=== PATIENT | female | born 1970 | race Caucasian/White ===

== ENCOUNTER 2019-07-30 08:42 | Observation (INO) ==
[2019-07-30] MEDS ORDERED: *HR* FentaNYL (PF) 100 MCG/2 ML VIAL IVP ONE (08:56)
[2019-07-30] MEDS ORDERED: 0.9 % Sodium Chloride 1,000 ML IVC ONE ×2 (08:56→11:56)
[2019-07-30 09:10] LABS: Basophils # 0.1 K/mcL (0.0-0.2); Basophils % 0.4 %; Eosinophils # 0.4 K/mcL (0.0-0.6); Eosinophils % 2.1 %; Hematocrit 39.7 % (35.3-44.9); Hemoglobin 12.5 g/dL (11.5-15.4); Immature Granulocytes % 0.5 % (0-4); Lymphocytes # 1.3 K/mcL (0.6-4.6); Lymphocytes % 6.8 %; Mean Corpuscular HGB Conc 31.5 g/dL (31.6-35.5); Mean Corpuscular Hemoglobin 25.9 pg (28.0-33.3); Mean Corpuscular Volume 82.4 fL (83.0-100.0); Mean Platelet Volume 9.3 fL (9.4-12.4); Monocytes # 1.4 K/mcL (0.0-1.3); Monocytes % 7.5 %; Neutrophils # 15.7 K/mcL (1.6-8.9); Platelet Count 367 K/mcL (140-400); Red Blood Count 4.82 M/mcL (3.82-4.97); Red Cell Distribution Width 14.8 % (11.5-14.5); Segmented Neutrophils % 82.7 %; White Blood Count 18.9 K/mcL (4.3-11.1)
[2019-07-30 09:21] LABS: Bilirubin,Urine Small (Negative); Blood,Urine Negative (Negative); Color,Urine Dark Yellow (Yellow); Glucose,Urine (UA) Normal (Normal); Ketones,Urine Trace mg/dL (Negative); Leukocyte Esterase,Urine Moderate (Negative); Nitrite,Urine Negative (Negative); Protein,Urine 100 mg/dL (Neg-Trace); Specific Gravity,Urine > 1.030 (1.010-1.025); Urobilinogen,Urine Normal (Normal)
[2019-07-30 09:21] LABS: INR 1.2; Prothrombin Time 13.6 Seconds (9.4-12.1)
[2019-07-30 09:24] LABS: Activated Partial Thrombo Time 32.8 Seconds (26.0-36.0)
[2019-07-30 09:24] LABS: Bacteria,Urine Many per hpf (None-Few); Squamous Epithelial Cell,Urine Many per lpf (None-Few); WBC,Urine 50-100 per hpf (0-3)
[2019-07-30 09:26] LABS: Clarity,Urine Slightly Cloudy (Clear)
[2019-07-30 09:32] LABS: Alanine Aminotransferase 44 Units/L (7-52); Albumin/Globulin Ratio 1.1 (1.1-2.2); Alkaline Phosphatase 131 Units/L (34-104); Aspartate Amino Transferase 31 Units/L (13-39); BUN/Creatinine Ratio 13 (6-26); Bilirubin,Direct 0.2 mg/dL (0.0-0.2); Bilirubin,Indirect 0.5 mg/dL (0.0-1.2); Bilirubin,Total 0.7 mg/dL (0.3-1.0); Blood Urea Nitrogen 12 mg/dL (6-20); Calcium 9.2 mg/dL (8.6-10.3); Carbon Dioxide 23 mEq/L (23-29); Chloride 100 mEq/L (98-107); Globulin 3.6 g/dL (2.4-3.5); Glucose 122 mg/dL (70-105); Lipase 6 Units/L (11-82); Osmolality,Calculated 275 (280-300); Potassium 3.7 mEq/L (3.5-5.1); Sodium 132 mEq/L (136-145); Total Protein 7.6 g/dL (6.4-8.9); eGFR For African Americans > 60 (> 60); eGFR For Non-African Americans > 60 (> 60)
[2019-07-30 09:54] LABS: RBC,Urine 0-3 per hpf (0-3)
[2019-07-30 09:55] LABS: Hyaline Casts,Urine Few per lpf (None-Few); Mucus,Urine Few (Few)
[2019-07-30] MEDS ORDERED: Ondansetron ODT 4 MG TAB.RAPDIS SL PRN ×2 (11:56→19:33)
[2019-07-30] MEDS ORDERED: D5% in Lactated Ringers 1,000 ML IVC SCH (12:00)
[2019-07-30] MEDS ORDERED: levoFLOXacin 750 MG/150 ML 750 MG/150 ML BAG IVPB SCH (12:15)
[2019-07-30] MEDS ORDERED: *HR* Propofol 200 MG/20 ML VIAL IVP ONE (15:21)
[2019-07-30] MEDS ORDERED: *HR* FentaNYL (PF) 100 MCG/2 ML VIAL ONE ×2 (15:21→16:23)
[2019-07-30] MEDS ORDERED: *HR* Midazolam HCl 2 MG/2 ML VIAL ONE (15:21)
[2019-07-30] MEDS ORDERED: Dexamethasone 4 MG/ML VIAL ONE ×2 (15:22→17:17)
[2019-07-30] MEDS ORDERED: Ondansetron 4 MG/2 ML VIAL ONE (15:22)
[2019-07-30] MEDS ORDERED: Lidocaine HCL 4 ML Topical Solution (Laryng-O-Jet Kit Sterile Pak) TP ONE (15:22)
[2019-07-30] MEDS ORDERED: *HR* Rocuronium Bromide 50 MG/5 ML VIAL ONE (15:22)
[2019-07-30] MEDS ORDERED: Lidocaine -MPF 2% 2 ML VIAL ONE (15:22)
[2019-07-30] MEDS ORDERED: Albuterol 2.5 MG/3 ML NEBULIZER IH ONE (15:38)
[2019-07-30] MEDS ORDERED: Isovue-300 50ML VIAL ONE (15:41)
[2019-07-30] MEDS ORDERED: Albuterol 2.5 MG/3 ML NEBULIZER ONE (15:43)
[2019-07-30] MEDS ORDERED: MetroNIDAZOLE 500 MG/100 ML 500 MG/100 ML BAG IVPB SCH (16:00)
[2019-07-30] MEDS ORDERED: *HR* Succinylcholine 200 MG/10 ML VIAL IVP ONE (16:40)
[2019-07-30] MEDS ORDERED: *HR* OxyCODONE Immed Rel 5 MG TABLET PO PRN (18:26)
[2019-07-30] MEDS: *HR* HYDROmorphone (PF) 1 MG/ML SYRINGE IVP PRN ×2 (18:38→18:44)
[2019-07-30] MEDS: *HR* Heparin 5,000 UNIT/ML VIAL SQ SCH (21:34)
[2019-07-30] MEDS: D5% in Lactated Ringers 1,000 ML IVC SCH (21:41)
[2019-07-31] MEDS: MetroNIDAZOLE 500 MG/100 ML 500 MG/100 ML BAG IVPB SCH ×2 (00:13→07:34)
[2019-07-31] MEDS: Acetaminophen 325 MG TABLET PO PRN ×2 (02:23→08:52)
[2019-07-31] MEDS: D5% in Lactated Ringers 1,000 ML IVC SCH (06:44)
[2019-07-31] MEDS: *HR* Heparin 5,000 UNIT/ML VIAL SQ SCH (06:45)
[2019-07-31 07:04] VITALS: BP 120/82
[2019-07-31] MEDS ORDERED: levoFLOXacin 750 MG/150 ML 750 MG/150 ML BAG IVPB SCH (09:00)
[2019-07-31] MEDS ORDERED: FLUoxetine 20 MG CAPSULE PO SCH (09:00)
== END 2019-07-31 11:30 | disposition home or self-care (01) ==
LOC: EMEROOARM 08:42 → 3ANU 08:42
PROVIDERS: ADMIT Surgery; ATTEND Surgery

== ENCOUNTER 2021-12-21 06:03 | Inpatient (IN) ==
[~2021-12-21 06:03] MED LIST: Acetaminophen IV 1,000 MG/100 ML BAG IVPB ONE; Famotidine 20 MG/2 ML VIAL IVP ONE
[2021-12-21] MEDS: Ringers Solution, Lactated 1,000 ML IVC ONE ×2 (06:52→14:55)
[2021-12-21] MEDS ORDERED: *HR* Midazolam HCl 2 MG/2 ML VIAL ONE (07:15)
[2021-12-21] MEDS ORDERED: *HR* Propofol 200 MG/20 ML VIAL IVP ONE (07:15)
[2021-12-21] MEDS ORDERED: *HR* FentaNYL (PF) 100 MCG/2 ML VIAL ONE (07:15)
[2021-12-21] MEDS ORDERED: Ondansetron 4 MG/2 ML VIAL ONE (07:16)
[2021-12-21] MEDS ORDERED: Lidocaine -MPF 2% 5 ML VIAL ONE (07:16)
[2021-12-21] MEDS ORDERED: Lidocaine HCL 4 ML Topical Solution (Laryng-O-Jet Kit Sterile Pak) TP ONE (07:16)
[2021-12-21] MEDS ORDERED: *HR* Succinylcholine 200 MG/10 ML VIAL IVP ONE (07:16)
[2021-12-21] MEDS ORDERED: *HR* Rocuronium Bromide 50 MG/5 ML VIAL ONE (07:16)
[2021-12-21] MEDS ORDERED: CeFAZolin Syr 2,000MG/20 ML 2,000 MG/20 ML SYRINGE IVPB ONE (07:25)
[2021-12-21] MEDS ORDERED: Famotidine 20 MG/2 ML VIAL ONE (07:45)
[2021-12-21] MEDS ORDERED: *HR* FentaNYL (PF) 100 MCG/2 ML VIAL IVP PRN (07:48)
[2021-12-21] MEDS ORDERED: Ondansetron 4 MG/2 ML VIAL IVP PRN ×2 (07:48→10:26)
[2021-12-21] MEDS ORDERED: Nitroglycerin 0.4 MG TAB.SUBL SL PRN (07:48)
[2021-12-21] MEDS ORDERED: *HR* HYDROmorphone (PF) 1 MG/ML SYRINGE IVP PRN (07:48)
[2021-12-21] MEDS ORDERED: Naloxone 0.4 MG/ML INJ IVP PRN ×2 (07:48→10:26)
[2021-12-21] MEDS ORDERED: Albuterol 2.5 MG/3 ML NEBULIZER IH PRN (07:48)
[2021-12-21] MEDS ORDERED: Ketorolac 30 MG/ML VIAL ONE (08:11)
[2021-12-21] MEDS ORDERED: EPHEDrine 50 MG/ML VIAL ONE (08:27)
[2021-12-21] MEDS ORDERED: Sugammadex Sodium 200 MG/2 ML VIAL IV ONE (08:50)
[2021-12-21] MEDS ORDERED: *HR* HYDROMORPHONE 2 MG/ML VIAL ONE (08:50)
[2021-12-21] MEDS ORDERED: Ringers Solution, Lactated 1,000 ML IVC SCH (10:26)
[2021-12-21] MEDS ORDERED: Sennosides 8.6 MG TABLET PO PRN (10:26)
[2021-12-21] MEDS ORDERED: *HR* OxyCODONE Immed Rel 5 MG TABLET PO PRN (10:26)
[2021-12-21] MEDS: Ibuprofen 600 MG TABLET PO SCH ×2 (14:54→20:47)
[2021-12-21] MEDS: Acetaminophen 325 MG TABLET PO SCH (19:42)
[2021-12-21] MEDS ORDERED: FLUoxetine 20 MG CAPSULE PO SCH (21:00)
[2021-12-21] MEDS ORDERED: Topiramate 25 MG TABLET PO SCH (21:00)
[2021-12-21] MEDS ORDERED: ESZOPICLONE 3 MG PO SCH (21:00)
[2021-12-21] MEDS: Simethicone 80 MG TAB.CHEW PO PRN (22:40)
[2021-12-22] MEDS: Acetaminophen 325 MG TABLET PO SCH ×2 (03:06→08:29)
[2021-12-22 06:35] VITALS: BP 108/66; PULSE 72; TEMP 97.8; O2SAT 96
[2021-12-22] MEDS: Simethicone 80 MG TAB.CHEW PO PRN (08:29)
== END 2021-12-22 10:00 | disposition home or self-care (01) | DRG 743 ==
LOC: SAMDAY 06:03 → 1NENUOBS 10:17
PROVIDERS: ADMIT Student in an Organized Health Care Education/Training Program; ATTEND Student in an Organized Health Care Education/Training Program